=== PATIENT | female | born 1970 ===

== ENCOUNTER 2021-04-18 08:50 | Outpatient (CLI) | payer OTHER | END 2021-04-18 08:53 | disposition home or self-care (01) | LOC: SONOGRAMA 08:50 | PROVIDERS: ATTEND Specialist | DX: D17.1 Benign lipomatous neoplasm of skin and subcutaneous tissue of trunk (principal); I10 Essential (primary) hypertension ==

== ENCOUNTER → 2021-05-02 12:19 | Outpatient (CLI) | payer OTHER | END | disposition home or self-care (01) | LOC: LAB 12:19 | PROVIDERS: ATTEND Specialist | DX: Z11.59 Encounter for screening for other viral diseases (principal) ==

== ENCOUNTER 2021-05-03 06:00 | Day surgery (SDC) | payer OTHER | END 2021-05-03 13:45 | disposition home or self-care (01) | LOC: CIR.AMB 06:00 | PROVIDERS: ATTEND Specialist | DX: D17.1 Benign lipomatous neoplasm of skin and subcutaneous tissue of trunk (principal); Z20.822 Contact with and (suspected) exposure to COVID-19 ==